=== PATIENT | male | born 1955 | race Caucasian/White ===

== ENCOUNTER 2019-05-13 09:00 | Outpatient (RCR) | payer BC ==
[~2019-05-13 09:00] MED LIST: COREG 6.256.25 MG/TA PO; EFFEXOR-XR150 MG PO; GLUCOPHAGE XR500 M1 PO; KLONOPIN 0.5MG0.5 MG PO; LIPITOR 40MG TA40 MG PO; LOPID 600M600 MG/TAB PO; MULTI VITAMINS1 TAB PO; NORCO 325 MG-51 TAB PO; PRINIVIL10 MG PO; PROTONIX 40MG T40 MG PO
== END 2019-06-09 14:25 | disposition home or self-care (01) ==
LOC: WSC 09:00
DX: M51.16 Intervertebral disc disorders with radiculopathy, lumbar region (principal)

== ENCOUNTER → 2019-11-17 | Outpatient (CLI) | payer MEDICARE, OTHER | LOC: COL.RAD 07:59 | DX: Z00.00 Encounter for general adult medical examination without abnormal findings (principal); Z13.6 Encounter for screening for cardiovascular disorders ==

== ENCOUNTER 2020-09-04 18:15 | Emergency (ER) | payer MEDICARE ==
[~2020-09-04] VITALS: Ht 180.3 cm; Wt 84.1 kg
[2020-09-04 18:47] VITALS: TEMP 98.8
[2020-09-04 20:38] LABS: COLLECTION METHOD CLEAN CATCH
[2020-09-04 20:40] LABS: HEMATOCRIT 45.8 % (42.0-52.0); HEMOGLOBIN 15.8 g/dl (13.5-18.0); MEAN CELL VOLUME 88 fl (80.0-100.0); MEAN CORPUSCULAR HEMOGLOBIN 30 pg (27.0-31.0); MEAN CORPUSCULAR HGB CONC 35 g/dl (33.0-37.0); MEAN PLATELET VOLUME 9.4 fl (7.4-10.4); PLATELET COUNT 335 K/mm3 (130-400); RED BLOOD COUNT 5.22 M/mm3 (4.20-5.60); REDCELL DISTRIBUTION WIDTH-CV 12.9 % (11.5-14.5)
[2020-09-04 20:49] LABS: MUCOUS Present /lpf; PH 5 (5-8); SQUAMOUS EPITHELIAL 0-2 /hpf; URINE APPEARANCE Cloudy; URINE BACTERIA Rare /hpf; URINE BILIRUBIN Negative (NEGATIVE); URINE BLOOD 3+ (NEGATIVE); URINE CALCIUM OXALATE CRYSTAL Present /hpf; URINE COLOR Yellow; URINE GLUCOSE Negative (NEGATIVE); URINE KETONE 1+ (NEGATIVE); URINE LEUKOCYTE ESTERASE Negative (NEGATIVE); URINE NITRATE Negative (NEGATIVE); URINE PROTEIN(semi-quant) 2+ (NEGATIVE); URINE RBC >50 /hpf; URINE UROBILINOGEN Negative (NEGATIVE)
[2020-09-04 21:03] LABS: ALANINE AMINOTRANSFERASE 13 U/L (4-49); ALBUMIN 4.9 gm/dL (3.5-5.0); ALKALINE PHOSPHATASE 79 U/L (50-136); ANION GAP 11 mmol/L (7-16); AST,SGOT 28 U/L (15-37); BILIRUBIN,TOTAL 0.6 mg/dL (0.0-1.0); BLOOD UREA NITROGEN 25 mg/dL (9-20); CALCIUM 10.2 mg/dL (8.4-10.2); CARBON DIOXIDE 22 mmol/L (22-30); CHLORIDE 105 mmol/L (98-107); CREATININE, serum 1.01 (0.66-1.25); GLUCOSE 144 mg/dL (74-106); POTASSIUM 3.8 mmol/L (3.4-5.0); SODIUM 139 mmol/L (137-145); TOTAL PROTEIN 8.6 gm/dL (6.4-8.2)
[2020-09-04 21:12] LABS: C-REACTIVE PROTEIN < 0.5 mg/dL (0.0-0.9)
[2020-09-04 21:24] LABS: LYMPHOCYTE 8 % (20.0-51.0); NEUTROPHILS 92 % (42.0-75.2)
[2020-09-04 21:26] LABS: PLATELET ESTIMATE NORMAL (NORMAL)
[2020-09-04] MEDS ORDERED: CIPRO 500MG TA500 MG PO (22:47)
[2020-09-04 23:41] VITALS: BP 158/100; PULSE 80
== END 2020-09-04 23:41 | disposition home or self-care (01) ==
LOC: COL.ER 18:15
PROVIDERS: Nurse Practitioner
DX: N20.1 Calculus of ureter (principal); I10 Essential (primary) hypertension; E11.9 Type 2 diabetes mellitus without complications; F32.9 Major depressive disorder, single episode, unspecified; Z79.84 Long term (current) use of oral hypoglycemic drugs; Z79.899 Other long term (current) drug therapy
CPT/HCPCS: J2270; J2405; J7030; Q9967